=== PATIENT | female | born 1940 | race Caucasian/White ===

== ENCOUNTER 2019-12-11 07:30 | Inpatient (IN) | payer OTHER ==
[~2019-12-11] VITALS: Ht 154.9 cm; Wt 61.7 kg
[2019-12-11] MEDS ORDERED: JANUMET XR 50-1 EAC1 PO ×2 (11:20)
[2019-12-11] MEDS ORDERED: GLIMEPIRIDE4 MG PO (11:20)
[2019-12-11] MEDS ORDERED: VERELAN PM300 MG PO (11:21)
[2019-12-11] MEDS ORDERED: SYNTHROID100 MCG PO (11:22)
[2019-12-11] MEDS ORDERED: ELIQUIS2.5 MG PO (11:22)
[2019-12-20] MEDS ORDERED: PERCOCET 5-3251 EACH PO (08:09)
[2019-12-20] MEDS ORDERED: CIPRO500 MG PO (08:09)
== END 2019-12-20 14:47 | disposition home or self-care (01) | DRG 483 ==
LOC: ADM 07:30 → EDBD 12-17 07:30 → EDSTATUS 12-17 07:30 → SURH 12-17 07:30 → O/R 12-17 08:14 → SURH 12-17 18:00
PROVIDERS: ADMIT Orthopaedic Surgery
PROC: 0RRK0JZ Replacement of Left Shoulder Joint with Synthetic Substitute, Open Approach (ICD-10-PCS; principal; 2019-12-17 18:00)
PROC: 4A19X1Z Monitoring of Respiratory Capacity, External Approach (ICD-10-PCS; 2019-12-18)
PROC: 4A12X4Z Monitoring of Cardiac Electrical Activity, External Approach (ICD-10-PCS; 2019-12-18)
DX: M19.012 Primary osteoarthritis, left shoulder (principal); I48.20 Chronic atrial fibrillation, unspecified; Z79.01 Long term (current) use of anticoagulants; E03.9 Hypothyroidism, unspecified; I10 Essential (primary) hypertension; E11.9 Type 2 diabetes mellitus without complications; M81.0 Age-related osteoporosis without current pathological fracture